=== PATIENT | male | born 1970 | race Caucasian/White ===

== ENCOUNTER → 2016-08-08 | Outpatient (CLI) | payer BC ==
--- NOTE | 2016-08-09 10:22 | ECHOF ---
Referral Reason:I10 HTN MEASUREMENTS -------- HEIGHT: 182.9 cm WEIGHT: 131.5 kg BP: 162/81 RVIDd: 3.4 cm (< 3.3) IVSd: 1.2 cm (0.6 - 1.1) LVIDd: 4.9 cm (3.9 - 5.3) LVPWd: 1.2 cm (0.6 - 1.1) IVSs: 1.8 cm LVIDs: 3.6 cm LVPWs: 2.0 cm LA Diam: 3.5 cm (2.7 - 3.8) LAESV Index (A-L): 21.47 ml/m Ao Diam: 3.4 cm (2.0 - 3.7) AV Cusp: 2.5 cm (1.5 - 2.6) MV EXCURSION: 15.271 mm (> 18.000) MV EF SLOPE: 98 mm/s (70 - 150) EPSS: 1.0 cm MV E Patrick: 1.05 m/s MV DecT: 186 ms MV A Patrick: 0.79 m/s MV E/A Ratio: 1.33 RAP: 5.00 mmHg RVSP: 20.86 mmHg FINDINGS -------- Sinus rhythm. This was a technically good study. The left ventricular size is normal. There is borderline concentric left ventricular hypertrophy. Overall left ventricular systolic function is normal with, an EF between 60 - 65 %. The right ventricle is mildly enlarged. Normal LA size by volume 22+/-6 ml/m2. The right atrium is normal in size. The aortic valve is trileaflet and appears structurally normal. The mitral valve is normal. Mild tricuspid regurgitation present. Right ventricular systolic pressure is normal at < 35 mmHg. The pulmonic valve is normal. There is no pulmonic regurgitation present. The aortic root size is normal. Normal inferior vena cava with normal inspiratory collapse consistent with estimated right atrial pressure of 5 mmHg. The pericardium is normal. CONCLUSIONS -------- 1. Sinus rhythm. 2. The mitral valve is normal. 3. Mild tricuspid regurgitation present. 4. Right ventricular systolic pressure is normal at < 35 mmHg. 5. The pulmonic valve is normal. 6. The aortic root size is normal. 7. Normal inferior vena cava with normal inspiratory collapse consistent with estimated right atrial pressure of 5 mmHg. 8. The pericardium is normal. 9. This was a technically good study. 10. The left ventricular size is normal. 11. There is borderline concentric left ventricular hypertrophy. 12. Overall left ventricular systolic function is normal with, an EF between 60 - 65 %. 13. The right ventricle is mildly enlarged. 14. Normal LA size by volume 22+/-6 ml/m2. 15. The right atrium is normal in size. 16. The aortic valve is trileaflet and appears structurally normal. HAND UMBRELLA TIPPER: Erna Sommer RDCS
== END | disposition home or self-care (01) ==
LOC: RADECHMAIN 14:53
PROVIDERS: ATTEND Family Medicine
DX: I51.7 Cardiomegaly (principal); I07.1 Rheumatic tricuspid insufficiency; I10 Essential (primary) hypertension
CPT/HCPCS: 93306

== ENCOUNTER 2016-12-12 06:21 | Day surgery (SDC) | payer BC ==
[2016-12-09 11:41] VITALS: BMI 37.7
[~2016-12-12 06:21] MED LIST: DEXAMETHASONE SOD PHOSPHATE 10 MG/ML 1 ML VIAL IV ONE; LACTATED RINGERS 1,000 ML IV SCH; ONDANSETRON 4 MG/2 ML VIAL IVP ONE; ceFAZolin 3 GM in SODIUM CHLORIDE 0.9% 100 ML IVPB ONE
[2016-12-12] MEDS ORDERED: SCOPOLAMINE 1.5MG/72HR PATCH TRANSDERM ONE (06:58)
[2016-12-12] MEDS ORDERED: LIDOCAINE 1% 20 ML VIAL (10MG/ML) FOR IV START INTRADERMA ONE (06:58)
[2016-12-12] MEDS ORDERED: HEPARIN SODIUM,PORCINE 5,000 UNIT/ML 1 ML VIAL SQ ONE ×2 (07:28→07:29)
[2016-12-12] MEDS ORDERED: ROCURONIUM BROMIDE 10 MG/ML 10 ML VIAL IV ONE (07:29)
[2016-12-12] MEDS ORDERED: GLYCOPYRROLATE 0.2 MG/ML 2 ML VIAL ONE (07:29)
[2016-12-12] MEDS ORDERED: NEOSTIGMINE 1 MG/ML 10 ML VIAL ONE (07:29)
[2016-12-12] MEDS ORDERED: MIDAZOLAM 2 MG/2 ML VIAL ONE (07:29)
[2016-12-12] MEDS ORDERED: fentaNYL (PF) 50 MCG/ML 2 ML AMP ONE (07:29)
[2016-12-12] MEDS ORDERED: SUCCINYLCHOLINE CHLORIDE VIAL 200 MG/10 ML VIAL IV ONE (07:29)
[2016-12-12] MEDS ORDERED: HYDROmorphone (PF) 1 MG/ML ONE (07:29)
[2016-12-12] MEDS ORDERED: PROPOFOL 10 MG/ML 20 ML VIAL IV ONE (07:29)
[2016-12-12] MEDS ORDERED: LIDOCAINE 1% INJ 10MG/ML (20 ML MDV) ONE (07:29)
[2016-12-12] MEDS ORDERED: hydrALAZINE HCL 20 MG/ML 1 ML VIAL ONE (07:29)
[2016-12-12] MEDS ORDERED: BUPIVACAIN-EPI 0.5%-1:200,000 30 ML VIAL SQ ONE (07:51)
--- NOTE | 2016-12-12 09:02 | P.OP ---
Date of Procedure: 12/12/16 Preoperative Diagnosis: Umbilical hernia Postoperative Diagnosis: Incarcerated umbilical hernia containing preperitoneal fat Procedure(s) Performed: Robot-assisted laparoscopic repair of umbilical hernia with mesh Implants: 11.4 cm ventral or next mesh with adequate positioning system Anesthesia: ASHLEYA Surgeon: Dora Gonzalez Pathology: other Condition: stable Disposition: PACU Indications for Procedure: Operative Findings: Approximately 2 cm fascial defect for the umbilical hernia. Incarcerated containing preperitoneal fat Description of Procedure: Informed consent was obtained and the patient prior to the operation. Patient identified in the preoperative holding area taken the operating room placed in supine position given general anesthesia with endotracheal intubation. The patient's right arm was tucked After appropriately positioning the patient the patient was prepped and draped in the usual sterile surgical fashion. Appropriate timeout was called. Patient received 3 g of Ancef for skin prophylaxis and 5000 units of subcu heparin for thromboprophylaxis preoperatively. SCDs were also placed. Left upper quadrant with a identified and infiltrated with lidocaine small incision was made with the help of 11 blade and then a was used to enter the abdominal cavity and the direct vision. The abdomen was then insufflated to 15 mmHg. Once that was done, 12 mm port was placed in the left upper quadrant and 2 8 mm ports were placed in the left upper quadrant and left lower quadrant respectively. At this time for laparoscopic scope was removed and the robot was docked with the 12 mm camera and the progress in the left hand and scissors in the right hand were taken.. The hernia was identified and measured to be approximately 2.0 cm fascial defect . A preperitoneal plane was created around the fascial defect extending below so that there was good area to place the mesh . After that the fascial defect was closed with a running 0V lock suture. Once that was done and the needle was removed a 11.4 cm circular ventral like ST with echo positioning system was introduced . The Maxx Helm was then introduced and the mesh was elevated up to the abdominal wall into its position over the fascial defect that had previously been closed with good overlap. Running 2 0V lock suture was used to stitch the mesh to the abdominal wall. This was done and introduced pressure of 8 mmHg. Once that was done both needles were removed. The mesh was flat well in placed with good overlap. There is no bleeding. At this time the procedure was terminated. The robot was undocked and its instruments removed. Using the laparoscope the 12 mm port site was closed with a Maxx Helm and 0 Vicryl. The ports were removed abdomen was desufflated and the skin was closed with the help of 4-0 Monocryl. Dermabond was applied. The patient tolerated the procedure well there were no complications patient was taken to recovery room in stable condition after extubation.
[2016-12-12 09:13] VITALS: TEMP 98.4
[2016-12-12 09:17] VITALS: RESP 16
[2016-12-12] MEDS: HYDROmorphone 1 MG/ML 1 ML SYRINGE IVP PRN ×2 (09:33→09:41)
[2016-12-12] MEDS ORDERED: HYDROcodone/APAP 5-325MG 1 EACH TAB PO ONE (10:06)
[2016-12-12 11:01] VITALS: BP 128/74; PULSE 77
== END 2016-12-12 11:23 | disposition home or self-care (01) ==
LOC: OR 06:21
PROVIDERS: ATTEND Surgery
DX: K42.0 Umbilical hernia with obstruction, without gangrene (principal); I10 Essential (primary) hypertension; Z87.891 Personal history of nicotine dependence; E66.9 Obesity, unspecified; Z68.37 Body mass index [BMI] 37.0-37.9, adult
CPT/HCPCS: 49653; S2900; 88302

== ENCOUNTER 2022-03-22 08:54 | Observation (INO) | payer BC ==
--- NOTE | 2022-03-22 09:50 | ED ---
General Adult HPI - General Chief complaint: Abdominal Pain Stated complaint: N/V/D Time Seen by Provider: 03/22/22 09:14 Source: patient Mode of arrival: ambulatory Limitations: no limitations - History of Present Illness Initial comments: Dictation was produced using new test [employer] dictation software. please excuse any grammatical, word or spelling errors. Chief Complaint: 51-year-old male presents to the emergency department with nausea vomiting abdominal pain. Believes that he was poisoned on Friday History of Present Illness: Patient is a 51-year-old male presents to emergency department for nausea vomiting and abdominal pain. On Friday he ate some frozen meat balls from the local grocery store. Patient states that since that he's been having episodes of nausea, vomiting and abdominal pain. States that the abdominal pain is crampy. Denies any active symptoms at the bedside. Patient reports that his symptoms have improved. His emesis when he had some vomiting episodes were bilious. Patient has a chronic. Umbilical hernia that appears to be at baseline. Denies any diarrhea. He has had normal bowel movements. The ROS documented in this emergency department record has been reviewed and confirmed by me. Those systems with pertinent positive or negative responses have been documented in the HPI. All other systems are other negative and/or noncontributory. PHYSICAL EXAM: General Impression: Alert and oriented x3, not in acute distress HEENT: Normocephalic atraumatic, extra-ocular movements intact, pupils equal and reactive to light bilaterally, mucous membranes moist. Cardiovascular: Heart regular rate and rhythm Chest: Able to complete full sentences, no retractions, no tachypnea Abdomen: abdomen soft, non-tender, non-distended, no organomegaly Musculoskeletal: Pulses present and equal in all extremities, no peripheral edema Motor: no focal deficits noted Neurological: CN II-XII grossly intact, no focal motor or sensory deficits noted Skin: Intact with no visualized rashes Psych: Normal affect and mood ED course: 51-year-old well-appearing male with no significant comorbidities presents with chief complaint of food poisoning. Patient is well-appearing at the bedside. He does not have any active symptoms currently. Vital signs upon arrival are within acceptable limits. Chart review was performed Laboratory evaluation obtained. CBC unremarkable. Metabolic panel shows mild hyponatremia 126. Rest of labs unremarkable. X-ray shows findings suggestive bowel obstruction. Computed tomography scan abdomen pelvis shows high-grade small bowel obstruction secondary to anterior abdominal wall hernia sac. Case is discussed in detail with Dr. Moreno who arrived at the bedside and was able to manually reduce the hernia. Dr. Moreno requested patient be admitted to observation for further monitoring. Critical Care: no Critical Care time: n/a - Related Data Previous Rx's Medication Instructions Recorded HYDROcodone/APAP 5-325MG [[place] 1 tab PO Q6HR PRN #18 tab 12/12/16 5-325] Ibuprofen [Motrin] 800 mg PO Q8H PRN #30 tab 12/12/16 Allergies Allergy/AdvReac Type Severity Reaction Status Date / Time No Known Allergies Allergy Verified 03/22/22 09:09 Review of Systems ROS Statement: Those systems with pertinent positive or pertinent negative responses have been documented in the HPI. ROS Other: All systems not noted in ROS Statement are negative. Past Medical History Past Medical History: Hypertension, Pneumonia Additional Past Medical History / Comment(s): BP is normal now due to weight loss History of Any Multi-Drug Resistant Organisms: None Reported Past Surgical History: No Surgical Hx Reported, Hernia Repair Additional Past Surgical History / Comment(s): varicose veins Past Anesthesia/Blood Transfusion Reactions: Unable to Obtain Additional Past Anesthesia/Blood Transfusion Reaction / Comment(s): never had anesthesia Past Psychological History: No Psychological Hx Reported Smoking Status: Never smoker Past Alcohol Use History: Occasional Past Drug Use History: None Reported - Past Family History Mother Family Medical History: No Reported History General Exam Limitations: no limitations Course Vital Signs 03/22/22 09:10 Temperature 97 F L Pulse Rate 76 Respiratory 16 Rate Blood Pressure 142/99 O2 Sat by Pulse 95 Oximetry Medical Decision Making - Lab Data Result diagrams: 03/22/22 09:37 03/22/22 09:37 Lab Results 03/22/22 03/22/22 Range/Units 09:37 09:37 WBC 10.5 (3.8-10.6) k/uL RBC 5.44 (4.30-5.90) m/uL Hgb 17.1 (13.0-17.5) gm/dL Hct 46.4 (39.0-53.0) % MCV 85.2 (80.0-100.0) fL MCH 31.4 (25.0-35.0) pg MCHC 36.9 (31.0-37.0) g/dL RDW 12.3 (11.5-15.5) % Plt Count 269 (150-450) k/uL MPV 8.6 Neutrophils % 83 % Lymphocytes % 8 % Monocytes % 7 % Eosinophils % 1 % Basophils % 0 % Neutrophils # 8.7 H (1.3-7.7) k/uL Lymphocytes # 0.9 L (1.0-4.8) k/uL Monocytes # 0.7 (0-1.0) k/uL Eosinophils # 0.1 (0-0.7) k/uL Basophils # 0.1 (0-0.2) k/uL Sodium 126 L (137-145) mmol/L Potassium 4.3 (3.5-5.1) mmol/L Chloride 87 L (98-107) mmol/L Carbon Dioxide 26 (22-30) mmol/L Anion Gap 13 mmol/L BUN 19 (9-20) mg/dL Creatinine 0.85 (0.66-1.25) mg/dL Est GFR (CKD-EPI)AfAm >90 (>60 ml/min/1.73 sqM) Est GFR (CKD-EPI)NonAf >90 (>60 ml/min/1.73 sqM) Glucose 122 H (74-99) mg/dL Calcium 9.6 (8.4-10.2) mg/dL Total Bilirubin 2.4 H (0.2-1.3) mg/dL AST 23 (17-59) U/L ALT 21 (4-49) U/L Alkaline Phosphatase 48 (38-126) U/L Total Protein 8.2 (6.3-8.2) g/dL Albumin 5.1 H (3.5-5.0) g/dL Lipase 101 (23-300) U/L Disposition Clinical Impression: SBO (small bowel obstruction) Disposition: ADMITTED IP TO THIS HOSP Condition: Fair Referrals: Shin Peterson MD [Primary Care Provider] - 1-2 days Decision Time: 12:30
[2022-03-22 10:05] LABS: Basophils # (A) 0.1 k/uL (0-0.2); Basophils % (A) 0 %; Eosinophils # (A) 0.1 k/uL (0-0.7); Eosinophils % (A) 1 %; HCT 46.4 % (39.0-53.0); HGB 17.1 gm/dL (13.0-17.5); Lymphocytes # (A) 0.9 k/uL (1.0-4.8); Lymphocytes % (A) 8 %; MCH 31.4 pg (25.0-35.0); MCHC 36.9 g/dL (31.0-37.0); MCV 85.2 fL (80.0-100.0); Mean Platelet Volume 8.6; Monocytes # (A) 0.7 k/uL (0-1.0); Monocytes % (A) 7 %; Neutrophils # (A) 8.7 k/uL (1.3-7.7); Neutrophils % (A) 83 %; Platelet Count 269 k/uL (150-450); RBC 5.44 m/uL (4.30-5.90); RDW 12.3 % (11.5-15.5); WBC 10.5 k/uL (3.8-10.6)
[2022-03-22 10:25] LABS: ALT 21 U/L (4-49); AST 23 U/L (17-59); African American GFR (CKD) >90 (>60 ml/min/1.73 sqM); Albumin 5.1 g/dL (3.5-5.0); Alkaline Phosphatase 48 U/L (38-126); Anion Gap 13 mmol/L; Blood Urea Nitrogen 19 mg/dL (9-20); Calcium 9.6 mg/dL (8.4-10.2); Carbon Dioxide 26 mmol/L (22-30); Chloride 87 mmol/L (98-107); Glucose 122 mg/dL (74-99); Lipase 101 U/L (23-300); Non-African American GFR(CKD) >90 (>60 ml/min/1.73 sqM); Potassium 4.3 mmol/L (3.5-5.1); Sodium 126 mmol/L (137-145); Total Bilirubin 2.4 mg/dL (0.2-1.3); Total Protein 8.2 g/dL (6.3-8.2)
--- NOTE | 2022-03-22 10:30 | XR ---
EXAMINATION TYPE: XR abdomen 1V DATE OF EXAM: 03/22/2022 Comparison: None Clinical History: 51-year-old male abdominal pain Findings: Dilated 4.4 cm small bowel loop in the midabdomen. Additional air-fluid levels are present in the cece tral abdomen. There is paucity of colonic air. No evidence for free intraperitoneal air. Lung bases a re clear. Impression: Mid abdominal air-fluid levels. Small bowel loop dilated up to 4.4 cm with paucity of colonic air. Un able to exclude small bowel obstruction.
--- NOTE | 2022-03-22 12:09 | CT ---
EXAMINATION TYPE: CT abdomen pelvis w con DATE OF EXAM: 03/22/2022 COMPARISON: HISTORY: abdominal pain, vomiting CT DLP: 2257.5 mGycm Automated exposure control for dose reduction was used. CONTRAST: CT scan of the abdomen pelvis is performed with IV Contrast, patient injected with 100 mL of Isovue 3 00. FINDINGS- LUNG BASES- No significant abnormality is appreciated. LIVER/GB- enhancement of the gallbladder wall with cholelithiasis suspected. There appears to be in trahepatic biliary ductal dilation and extrahepatic biliary ductal dilation measuring 9 mm.. PANCREAS- No gross abnormality is seen. SPLEEN- No gross abnormality is seen. ADRENALS- No gross abnormality is seen. KIDNEYS/BLADDER- no hydronephrosis nephrolithiasis or renal mass. BOWEL- there are numerous dilated small bowel loops with anterior abdominal hernia seen containing l oops of small bowel with change in caliber along the right lateral margin hernia sac compatible with a high-grade small bowel obstruction secondary to anterior abdominal wall hernia. Report discussed wi th the ER physician at 12:00 PM, 03/22/2022 Diverticulosis of the sigmoid colon. LYMPH NODES- No greater than 1cm abdominal or pelvic lymph nodes are appreciated. OSSEOUS STRUCTURES- hypertrophic and degenerative change of the spine OTHER- there is a small amount of fluid in pelvis and along the liver. No obvious sizable free intra peritoneal air. Small amount of fluid adjacent to the spleen also noted. Aorta caliber. The SMV and S MA relationship is maintained. Mesenteric vasculature enhances I immediately. IMPRESSION- 1. There is a high-grade small bowel obstruction most likely secondary to anterior abdominal wall her aysha sac in the periumbilical region. Small amount of ascites surrounding the spleen, liver and within the pelvis also noted. 2. Enhancement of the gallbladder wall with extra and intrahepatic biliary ductal dilation. No obviou s calcification within the bile duct. The physis is suspected. Recommend ultrasound the right upper quadrant with attention to the gallblad adebayo to exclude cholecystitis. 3. Diverticulosis with no CT evidence of diverticulitis.
[2022-03-22] MEDS ORDERED: NALOXONE 0.4 MG/ML 1 ML VIAL IV PRN (12:28)
[2022-03-22] MEDS ORDERED: ACETAMINOPHEN TAB 325 MG TAB PO PRN (12:33)
[2022-03-22] MEDS ORDERED: HYDROmorphone 0.5 MG/0.5 ML SYRINGE IVP PRN (12:33)
--- NOTE | 2022-03-22 12:37 | P.GSHP ---
History of Present Illness H&P Date: 03/22/22 Chief Complaint: Small bowel obstruction 51-year-old male comes in the ER with complaints of abdominal pain and vomiting. Patient with history of previous repair umbilical hernia laparoscopically 2017 with underlay mesh. Patient says during Covid he had a recurrence of his hernia and felt a bulge there. Since Friday the hernia has been larger and it is not reducible. He started having nausea and vomiting over the last few days. Came for evaluation. X-rays and CAT scan show small bowel obstruction with loop of bowel incarcerated in the hernia. Initial attempts by the ER to reduce this hernia unsuccessful. No fevers. Emesis is bilious. White blood cell count 10.5. - Review of Systems Comment: The patient denies any acute changes in vision or hearing, no dysphagia or odynophagia, no chest pain or shortness of breath, no dysuria or hematuria, no headache, no runny nose, no rectal bleeding or melena, no unexplained weight loss Past Medical History Past Medical History: Hypertension, Pneumonia Additional Past Medical History / Comment(s): BP is normal now due to weight loss History of Any Multi-Drug Resistant Organisms: None Reported Past Surgical History: No Surgical Hx Reported, Hernia Repair Additional Past Surgical History / Comment(s): varicose veins Past Anesthesia/Blood Transfusion Reactions: Unable to Obtain Additional Past Anesthesia/Blood Transfusion Reaction / Comment(s): never had anesthesia Past Psychological History: No Psychological Hx Reported Smoking Status: Never smoker Past Alcohol Use History: Occasional Past Drug Use History: None Reported - Past Family History Mother Family Medical History: No Reported History Medications and Allergies Home Medications Medication Instructions Recorded Confirmed Type HYDROcodone/APAP 5-325MG [[place] 1 tab PO Q6HR PRN #18 tab 12/12/16 Rx 5-325] Ibuprofen [Motrin] 800 mg PO Q8H PRN #30 tab 12/12/16 Rx Allergies Allergy/AdvReac Type Severity Reaction Status Date / Time No Known Allergies Allergy Verified 03/22/22 09:09 Surgical - Exam Vital Signs Temp Pulse Resp BP Pulse Ox 97 F L 76 16 142/99 95 03/22/22 09:10 03/22/22 09:10 03/22/22 09:10 03/22/22 09:10 03/22/22 09:10 Physical exam: General: Well-developed, well-nourished HEENT: Normocephalic, sclerae nonicteric Abdomen: Mild tenderness at umbilical hernia site, hernia able to be reduced with mild gentle pressure, patient with 2-3 cm fascial defect at base of umbilicus with possible additional fascial defects superior to that Extremities: No edema Neuro: Alert and oriented Results - Labs 03/22/22 09:37 03/22/22 09:37 Abnormal Lab Results - Last 24 Hours (Table) 03/22/22 03/22/22 Range/Units 09:37 09:37 Neutrophils # 8.7 H (1.3-7.7) k/uL Lymphocytes # 0.9 L (1.0-4.8) k/uL Sodium 126 L (137-145) mmol/L Chloride 87 L (98-107) mmol/L Glucose 122 H (74-99) mg/dL Total Bilirubin 2.4 H (0.2-1.3) mg/dL Albumin 5.1 H (3.5-5.0) g/dL Diabetes panel 03/22/22 Range/Units 09:37 Sodium 126 L (137-145) mmol/L Potassium 4.3 (3.5-5.1) mmol/L Chloride 87 L (98-107) mmol/L Carbon Dioxide 26 (22-30) mmol/L BUN 19 (9-20) mg/dL Creatinine 0.85 (0.66-1.25) mg/dL Glucose 122 H (74-99) mg/dL Calcium 9.6 (8.4-10.2) mg/dL AST 23 (17-59) U/L ALT 21 (4-49) U/L Alkaline Phosphatase 48 (38-126) U/L Total Protein 8.2 (6.3-8.2) g/dL Albumin 5.1 H (3.5-5.0) g/dL Calcium panel 03/22/22 Range/Units 09:37 Calcium 9.6 (8.4-10.2) mg/dL Albumin 5.1 H (3.5-5.0) g/dL Pituitary panel 03/22/22 Range/Units 09:37 Sodium 126 L (137-145) mmol/L Potassium 4.3 (3.5-5.1) mmol/L Chloride 87 L (98-107) mmol/L Carbon Dioxide 26 (22-30) mmol/L BUN 19 (9-20) mg/dL Creatinine 0.85 (0.66-1.25) mg/dL Glucose 122 H (74-99) mg/dL Calcium 9.6 (8.4-10.2) mg/dL Adrenal panel 03/22/22 Range/Units 09:37 Sodium 126 L (137-145) mmol/L Potassium 4.3 (3.5-5.1) mmol/L Chloride 87 L (98-107) mmol/L Carbon Dioxide 26 (22-30) mmol/L BUN 19 (9-20) mg/dL Creatinine 0.85 (0.66-1.25) mg/dL Glucose 122 H (74-99) mg/dL Calcium 9.6 (8.4-10.2) mg/dL Total Bilirubin 2.4 H (0.2-1.3) mg/dL AST 23 (17-59) U/L ALT 21 (4-49) U/L Alkaline Phosphatase 48 (38-126) U/L Total Protein 8.2 (6.3-8.2) g/dL Albumin 5.1 H (3.5-5.0) g/dL Assessment and Plan (1) Incarcerated incisional hernia Narrative/Plan: 51-year-old male with incarcerated incisional hernia at previous hernia site. Able to be reduced at bedside. Keep nothing by mouth for now. Admit for observation. If doing well tomorrow we'll discharge with plans for outpatient repair electively. Current Visit: Yes Status: Acute Code(s): K43.0 - INCISIONAL HERNIA WITH O BSTRUCTION, WITHOUT GANGRENE SNOMED Code(s): 808253569
--- NOTE | 2022-03-22 13:53 | P.CONS ---
History of Present Illness - Reason for Consult Consult date: 03/22/22 Medical management - Chief Complaint Abdominal pain - History of Present Illness Patient is a 51-year-old male with no significant past medical history presenting for distended abdominal hernia and vomiting. He has a previous surgical history of laparoscopic umbilical hernia repair in 2017 with underlay mesh. Recently he has noticed that the hernia has been larger and not reducible. Over the last few days, he has been experiencing nausea and vomiting. He has not had any bowel movement for the last 3 days. He denies any chest pain, shortness of breath, palpitations, fevers, chills, diarrhea, or urinary complaints. He occasionally drinks alcohol, is a former smoker, denies any illicit drug use. In the ED his vital signs were within normal limits. Laboratory workup showed sodium of 126, chloride of 87, elevated bilirubin. Abdominal CT demonstrated high-grade small bowel obstruction secondary to anterior abdominal wall hernia sac in the periumbilical region. Also noted to have enhancement of gallbladder wall with extra and intrahepatic biliary ductal dilatation. Diverticulosis, no evidence of diverticulitis. Hernia was reduced by surgery. Patient then had a bowel movement as well. [facility] physicians has been consulted for medical management. Patient seen and examined at bedside. Pertinent positives and negatives as discussed in HPI, a complete review of systems was performed and all other systems are negative. Vital signs reviewed General: nontoxic, no distress, appears at stated age Derm: warm, dry Head: atraumatic, normocephalic, symmetric Eyes: EOMI, no lid lag, anicteric sclera, pupils equal round reactive to light ENT: Nose and ears atraumatic Neck: No thyromegaly, supple Mouth: no lip lesion, mucus membranes moist Cardiovascular: S1S2 reg, no murmur, no edema Lungs: clear to auscultation bilateral, no rhonchi, no rales, no wheeze, no accessory muscle use Abdominal: soft, nontender to palpation, no guarding, no appreciable organomegaly, reducible periumbilical hernia Ext: no gross muscle atrophy, muscle strength muscle strength 5 out of 5 in all 4 extremities, no contractures Neuro: CN II-XII grossly intact Psych: Alert, oriented, appropriate affect Assessment/Plan: Incarcerated incisional hernia - reduced by surgery Small bowel obstruction - resolving -Currently nothing by mouth -Management per surgery -Pain control and DVT prophylaxis per surgery Hyponatremia, likely hypovolemic - Continue IV fluids Thank you for allowing us to participate in the care of this pleasant patient. Do not hesitate to contact us with questions. Someone can be reached from the [facility] hospitalist group all hours of the day at [phone] or via [employer]. Past Medical History Past Medical History: Hypertension, Pneumonia Additional Past Medical History / Comment(s): BP is normal now due to weight loss History of Any Multi-Drug Resistant Organisms: None Reported Past Surgical History: No Surgical Hx Reported, Hernia Repair Additional Past Surgical History / Comment(s): varicose veins Past Anesthesia/Blood Transfusion Reactions: Unable to Obtain Additional Past Anesthesia/Blood Transfusion Reaction / Comm: never had anesthesia Past Psychological History: No Psychological Hx Reported Smoking Status: Never smoker Past Alcohol Use History: Occasional Past Drug Use History: None Reported - Past Family History Mother Family Medical History: No Reported History Medications and Allergies Home Medications Medication Instructions Recorded Confirmed Type No Known Home Medications 03/22/22 03/22/22 History Allergies Allergy/AdvReac Type Severity Reaction Status Date / Time No Known Allergies Allergy Verified 03/22/22 12:46 Physical Exam Vitals: Vital Signs Temp Pulse Resp BP Pulse Ox 03/22/22 09:10 97 F L 76 16 142/99 95 Intake and Output 03/21/22 03/22/22 03/22/22 22:59 06:59 14:59 Other: Weight 122.47 kg Results CBC & Chem 7: 03/22/22 09:37 03/22/22 09:37 Labs: Abnormal Lab Results - Last 24 Hours (Table) 03/22/22 03/22/22 Range/Units 09:37 09:37 Neutrophils # 8.7 H (1.3-7.7) k/uL Lymphocytes # 0.9 L (1.0-4.8) k/uL Sodium 126 L (137-145) mmol/L Chloride 87 L (98-107) mmol/L Glucose 122 H (74-99) mg/dL Total Bilirubin 2.4 H (0.2-1.3) mg/dL Albumin 5.1 H (3.5-5.0) g/dL
[2022-03-22] MEDS: SODIUM CHLORIDE 0.9% 1,000 ML IV SCH (13:55)
[2022-03-22] MEDS: HEPARIN SODIUM,PORCINE/PF 5,000 UNIT/0.5 ML SYRINGE SQ SCH ×2 (15:43→23:45)
[2022-03-22] MEDS: D5-0.45% NACL WITH KCL 20MEQ/L 1,000 ML IV SCH ×2 (15:43→21:36)
[2022-03-22] MEDS: KETOROLAC 15 MG/ML 1 ML VIAL IVP SCH ×2 (17:51→23:45)
[2022-03-23] MEDS: SODIUM CHLORIDE 0.9% 1,000 ML IV SCH (01:24)
[2022-03-23 02:31] VITALS: TEMP 98.3
[2022-03-23] MEDS: D5-0.45% NACL WITH KCL 20MEQ/L 1,000 ML IV SCH ×2 (04:18→09:35)
[2022-03-23] MEDS: KETOROLAC 15 MG/ML 1 ML VIAL IVP SCH ×2 (05:45→12:36)
[2022-03-23 08:15] VITALS: BP 127/85; PULSE 59; RESP 16
[2022-03-23 08:55] LABS: Basophils # (A) 0.06 X 10*3/uL (0.00-0.10); Basophils % (A) 0.9 %; Eosinophils # (A) 0.13 X 10*3/uL (0.04-0.35); Eosinophils % (A) 1.9 %; HCT 44.8 % (39.6-50.0); HGB 15.5 g/dL (13.0-17.0); Immature Grans, Automated 0.9 %; Lymphocytes # (A) 1.09 X 10*3/uL (0.90-5.00); MCH 30.6 pg (27.0-32.0); MCHC 34.6 g/dL (32.0-37.0); MCV 88.4 fL (80.0-97.0); Monocytes # (A) 0.62 X 10*3/uL (0.20-1.00); Monocytes % (A) 9.1 %; NRBC Per 100 WBC 0 /100 WBCS (0.0-0.0); Neutrophils # (A) 4.86 X 10*3/uL (1.80-7.70); Neutrophils % (A) 71.2 %; Platelet Count 238 X 10*3/uL (140-440); RBC 5.07 X 10*6/uL (4.40-5.60); RDW 12.6 % (11.5-14.5); WBC 6.82 X 10*3/uL (4.50-10.00)
[2022-03-23] MEDS ORDERED: PANTOPRAZOLE 40 MG/10 ML VIAL IV SCH (09:00)
[2022-03-23] MEDS: HEPARIN SODIUM,PORCINE/PF 5,000 UNIT/0.5 ML SYRINGE SQ SCH (09:05)
[2022-03-23 09:42] LABS: African American GFR (CKD) 112.6 (60.0-200.0); Anion Gap 11.4 mmol/L (10.00-18.00); Blood Urea Nitrogen 13.5 mg/dL (9.0-27.0); Calcium 8.9 mg/dL (8.7-10.3); Carbon Dioxide 24.6 mmol/L (20.0-27.5); Non-African American GFR(CKD) 97.2 (60.0-200.0); Potassium 3.7 mmol/L (3.5-5.5)
--- NOTE | 2022-03-23 10:42 | P.DS ---
Providers Date of admission: 03/22/22 12:28 Expected date of discharge: 03/23/22 Attending physician: Casey Moreno Consults: 03/22/22 12:33 Consult Physician Routine Consulting Provider: Margo Sanders Consult Reason/Comments: Medical management Do you want consulting provider notified?: Yes Primary care physician: Shin Peterson - Discharge Diagnosis(es) (1) Incarcerated incisional hernia 51-year-old male admitted through the ER yesterday for observation after he presented with an incarcerated incisional hernia. Patient was having some discomfort yesterday but that quickly resolved. He started having bowel movements yesterday. No further nausea or vomiting. He is hungry. No abdominal pain now. Will resume diet. If tolerates we'll discharge. Plan outpatient repair. Current Visit: Yes Status: Acute Patient Condition at Discharge: Fair Plan - Discharge Summary Discharge Rx Participant: No New Discharge Prescriptions: No Action No Known Home Medications Discharge Medication List No Known Home Medications 03/22/22 [History] Follow up Appointment(s)/Referral(s): Shin Peterson MD [Primary Care Provider] - 1-2 days Casey Moreno MD [Medical Doctor] - 1 Week
--- NOTE | 2022-03-23 11:48 | P.PN ---
Subjective Progress Note Date: 03/23/22 Principal diagnosis: vomitting Hospital Course: Patient is a 51-year-old male with no significant past medical history presenting for distended abdominal hernia and vomiting. He has a previous surgical history of laparoscopic umbilical hernia repair in 2017 with underlay mesh. Recently he has noticed that the hernia has been larger and not reducible. Over the last few days, he has been experiencing nausea and vomiting. Abdominal CT demonstrated high-grade small bowel obstruction secondary to anterior abdominal wall hernia sac in the periumbilical region. Also noted to have enhancement of gallbladder wall with extra and intrahepatic biliary ductal dilatation. Diverticulosis, no evidence of diverticulitis. Hernia was manually reduced by surgery. Patient then had a bowel movement as well. [facility] physicians has been consulted for medical management. Subjective: Patient seen and examined at bedside. No acute events overnight. He denies any abdominal pain, nausea, vomiting, diarrhea, constipation, urinary complaints. He denies any chest pain or shortness of breath. Patient is eager to go home. Pertinent positives and negatives as discussed above, a complete review of systems was performed and all other systems are negative. Vitals Signs Reviewed. General: nontoxic, no distress, appears at stated age Derm: warm, dry Head: atraumatic, normocephalic, symmetric Eyes: EOMI, no lid lag, anicteric sclera, pupils equal round reactive to light ENT: Nose and ears atraumatic Neck: No thyromegaly, supple Mouth: no lip lesion, mucus membranes moist Cardiovascular: S1S2 reg, no murmur, no edema Lungs: clear to auscultation bilateral, no rhonchi, no rales, no wheeze, no accessory muscle use Abdominal: soft, nontender to palpation, no guarding, no appreciable organomegaly, reducible periumbilical hernia Ext: no gross muscle atrophy, muscle strength muscle strength 5 out of 5 in all 4 extremities, no contractures Neuro: CN II-XII grossly intact Psych: Alert, oriented, appropriate affect Assessment and Plan: Incarcerated incisional hernia - reduced by surgery Small bowel obstruction - resolving -Currently nothing by mouth -Management per surgery -Pain control and DVT prophylaxis per surgery Hyponatremia, likely hypovolemic -Improved with IV fluids Medically optimized for discharge home. Thank you for allowing us to participate in the care of this pleasant patient. Do not hesitate to contact us with questions. Someone can be reached from the [facility] hospitalist group all hours of the day at [phone] or via perfect serve. Objective - Vital Signs Vital signs: Vital Signs Temp 98.3 F 03/23/22 07:00 Pulse 59 L 03/23/22 07:00 Resp 16 03/23/22 07:00 BP 127/85 03/23/22 07:00 Pulse Ox 95 03/23/22 07:00 FiO2 Intake & Output 03/22/22 03/23/22 03/23/22 18:59 06:59 18:59 Weight 122.47 kg Other: # Voids 1 2 # Bowel Movements 1 - Labs CBC & Chem 7: 03/23/22 05:59 03/23/22 05:59 Labs: Abnormal Lab Results - Last 24 Hours (Table) 03/23/22 03/23/22 Range/Units 05:59 05:59 Immature Gran # 0.06 H (0.00-0.04) X 10*3/uL Sodium 128 L (135-145) mmol/L Chloride 92 L (96-109) mmol/L
== END 2022-03-23 14:23 | disposition home or self-care (01) ==
LOC: EC 08:54 → 6NMEDSUR 12:28
PROVIDERS: ADMIT Surgery; ATTEND Surgery
DX: K43.0 Incisional hernia with obstruction, without gangrene (principal); K57.90 Diverticulosis of intestine, part unspecified, without perforation or abscess without bleeding; R93.2 Abnormal findings on diagnostic imaging of liver and biliary tract; E87.1 Hypo-osmolality and hyponatremia; I10 Essential (primary) hypertension; Z87.891 Personal history of nicotine dependence
CPT/HCPCS: 99285; 36415; 80053; 80048; 83690; 85025 ×2; 74018; 74177; G0378 ×2; Q9967

== ENCOUNTER 2022-05-20 10:59 | Observation (INO) | payer BC ==
[~2022-05-20 10:59] MED LIST changes: +ACETAMINOPHEN TAB 500 MG TAB PO PRN; -DEXAMETHASONE SOD PHOSPHATE 10 MG/ML 1 ML VIAL IV ONE; +HEPARIN SODIUM,PORCINE/PF 5,000 UNIT/0.5 ML SYRINGE SQ PRN; -LACTATED RINGERS 1,000 ML IV SCH; -ONDANSETRON 4 MG/2 ML VIAL IVP ONE; -ceFAZolin 3 GM in SODIUM CHLORIDE 0.9% 100 ML IVPB ONE; +ceFAZolin 3 GM in SODIUM CHLORIDE 0.9% 100 ML IVPB PRN
[2022-05-20] MEDS ORDERED: ONDANSETRON 4 MG/2 ML VIAL IVP ONE (11:11)
[2022-05-20] MEDS ORDERED: DEXAMETHASONE SOD PHOSPHATE 4 MG/ML 1 ML VIAL IV ONE (11:11)
[2022-05-20] MEDS ORDERED: HYDROmorphone 0.5 MG/0.5 ML SYRINGE IVP PRN ×2 (11:11→14:31)
[2022-05-20] MEDS ORDERED: LIDOCAINE 1% (10MG/ML) FOR IV START INTRADERMA PRN (11:11)
[2022-05-20] MEDS: LACTATED RINGERS 1,000 ML IV SCH (11:40)
[2022-05-20 11:47] LABS: Glucose,Whole Blood 89 mg/dL (70-110)
[2022-05-20 11:52] LABS: Basophils % (A) 1 %; Eosinophils # (A) 0.2 k/uL (0-0.7); Eosinophils % (A) 3 %; HCT 45.6 % (39.0-53.0); HGB 15.7 gm/dL (13.0-17.5); Lymphocytes # (A) 1.1 k/uL (1.0-4.8); Lymphocytes % (A) 19 %; MCH 30.5 pg (25.0-35.0); MCHC 34.5 g/dL (31.0-37.0); MCV 88.4 fL (80.0-100.0); Mean Platelet Volume 8.2; Monocytes # (A) 0.3 k/uL (0-1.0); Monocytes % (A) 5 %; Neutrophils # (A) 4.3 k/uL (1.3-7.7); Neutrophils % (A) 71 %; Platelet Count 199 k/uL (150-450); RBC 5.16 m/uL (4.30-5.90); RDW 13.5 % (11.5-15.5); WBC 6.1 k/uL (3.8-10.6)
[2022-05-20 12:08] LABS: Potassium 4.1 mmol/L (3.5-5.1)
--- NOTE | 2022-05-20 12:35 | P.GSHP ---
History of Present Illness H&P Date: 05/20/22 Chief Complaint: Recurrent umbilical hernia 51-year-old male here for elective repair recurrent umbilical hernia. This was fixed apparently in 2017 laparoscopically using a 11 cm mesh. Patient was hospitalized late last year with an incarcerated hernia causing a bowel obst ruction. Hernia was able to be reduced avoiding the need for urgent surgery. Patient has mild pain at times. Hernia has gradually gotten larger. Past Medical History Past Medical History: Hypertension, Pneumonia Additional Past Medical History / Comment(s): BP is normal now due to weight loss History of Any Multi-Drug Resistant Organisms: None Reported Past Surgical History: No Surgical Hx Reported, Hernia Repair Additional Past Surgical History / Comment(s): varicose veins umbilical hernia Past Anesthesia/Blood Transfusion Reactions: No Reported Reaction Additional Past Anesthesia/Blood Transfusion Reaction / Comment(s): never had anesthesia Smoking Status: Former smoker - Past Family History Mother Family Medical History: No Reported History Medications and Allergies Home Medications Medication Instructions Recorded Confirmed Type No Known Home Medications 03/22/22 05/14/22 History Allergies Allergy/AdvReac Type Severity Reaction Status Date / Time No Known Allergies Allergy Verified 05/20/22 11:56 Surgical - Exam Vital Signs Temp Pulse Resp BP Pulse Ox 98.1 F 73 16 168/80 97 05/20/22 11:18 05/20/22 11:18 05/20/22 11:18 05/20/22 11:18 05/20/22 11:18 Physical exam: General: Well-developed, well-nourished HEENT: Normocephalic, sclerae nonicteric Abdomen: Nontender, nondistended, reducible umbilical hernia Extremities: No edema Neuro: Alert and oriented Results - Labs 05/20/22 11:41 05/20/22 11:41 Diabetes panel 05/20/22 Range/Units 11:41 Sodium 138 (137-145) mmol/L Potassium 4.1 (3.5-5.1) mmol/L Chloride 103 (98-107) mmol/L Carbon Dioxide 26 (22-30) mmol/L Pituitary panel 05/20/22 Range/Units 11:41 Sodium 138 (137-145) mmol/L Potassium 4.1 (3.5-5.1) mmol/L Chloride 103 (98-107) mmol/L Carbon Dioxide 26 (22-30) mmol/L Adrenal panel 05/20/22 Range/Units 11:41 Sodium 138 (137-145) mmol/L Potassium 4.1 (3.5-5.1) mmol/L Chloride 103 (98-107) mmol/L Carbon Dioxide 26 (22-30) mmol/L Assessment and Plan (1) Recurrent umbilical hernia Narrative/Plan: 51-year-old male with recurrent umbilical hernia. We'll proceed with open repair with mesh at this time. Risks of bleeding, infection, recurrence, bladder and bowel injury, numbness, nerve injury were discussed with the patient. The patient understands and wishes to proceed. Current Visit: Yes Status: Acute Code(s): K42.9 - UMBILICAL HERNIA WITHOUT OBSTRUCTION OR GANGRENE SNOMED Code(s): 708003131
[2022-05-20] MEDS ORDERED: MIDAZOLAM 2 MG/2 ML VIAL IV ONE (12:40)
--- NOTE | 2022-05-20 12:48 | P.ANPRN ---
Procedure Note - Anesthesia - Nerve Block Performed Bilateral Erector Spinae Single Time Out Performed: Yes Date of Procedure: 05/20/22 Procedure Start Time: 12:39 Procedure Stop Time: 12:47 Location of Patient: PreOp Indication: Requested by Surgeon Specifically requested for management of pain by DrTomy: Casey Moreno Sedation Type: Sedate with meaningful contact maintained Preparation: Sterile Prep Position: Prone Needle Types: Pajunk Needle Gauge: 21 Ultrasound used to visualize needle placement: Yes Ultrasound used to observe medication spread: Yes Injectate: 0.5% Ropivacaine (see comment for volume) (15 ml + 15 ml NS + 4mg Dexamethasone per side) Blood Aspirated: No Pain Paresthesia on Injection Noted: No Resistance on Injection: Normal Image Stored and Saved: Yes Events: Uneventful and Well Tolerated
[2022-05-20] MEDS ORDERED: ROCURONIUM 10 MG/ML (5 ML VIAL) IV ONE (13:01)
[2022-05-20] MEDS ORDERED: HYDROmorphone (PF) 1 MG/ML ONE (13:01)
[2022-05-20] MEDS ORDERED: SUCCINYLCHOLINE CHLORIDE 200 MG/10 ML VIAL IV ONE (13:01)
[2022-05-20] MEDS ORDERED: ROPIVACAINE 5 MG/ML 30 ML VIAL ONE (13:01)
[2022-05-20] MEDS ORDERED: fentaNYL (PF) 50 MCG/ML 2 ML AMP ONE (13:01)
[2022-05-20] MEDS ORDERED: NEOSTIGMINE 1 MG/ML 10 ML VIAL ONE (13:01)
[2022-05-20] MEDS ORDERED: GLYCOPYRROLATE 0.2 MG/ML 2 ML VIAL ONE (13:01)
[2022-05-20] MEDS ORDERED: PROPOFOL 10 MG/ML 20 ML VIAL IV ONE (13:01)
[2022-05-20] MEDS ORDERED: LIDOCAINE 2% INJ 20 MG/ML (2 ML VIAL) ONE (13:01)
[2022-05-20] MEDS ORDERED: DEXAMETHASONE SOD PHOSPHATE 4 MG/ML 1 ML VIAL ONE (13:01)
[2022-05-20] MEDS ORDERED: MIDAZOLAM 2 MG/2 ML VIAL ONE (13:01)
[2022-05-20] MEDS ORDERED: SODIUM CHLORIDE 0.9% (PF) 10 ML VIAL ONE (13:01)
[2022-05-20] MEDS ORDERED: LACTATED RINGERS 1,000 ML IV ONE (13:32)
[2022-05-20] MEDS ORDERED: ACETAMINOPHEN TAB 325 MG TAB PO PRN (14:31)
[2022-05-20] MEDS ORDERED: HYDROmorphone 1 MG/ML 1 ML SYRINGE IVP PRN (14:31)
[2022-05-20] MEDS ORDERED: NALOXONE 0.4 MG/ML 1 ML VIAL IV PRN (14:31)
[2022-05-20] MEDS ORDERED: ONDANSETRON 4 MG/2 ML VIAL IVP PRN (14:31)
[2022-05-20] MEDS ORDERED: HYDROcodone/APAP 5-325MG 1 EACH TAB PO PRN ×2 (14:31)
--- NOTE | 2022-05-20 14:37 | P.OP ---
Date of Procedure: 05/20/22 Procedure(s) Performed: PREOPERATIVE DIAGNOSIS: Recurrent umbilical hernia POSTOPERATIVE DIAGNOSIS: Recurrent umbilical hernia, incarcerated ventral hernia PROCEDURE: Open repair recurrent umbilical hernia and incarcerated ventral hernia with mesh, partial omentectomy SURGEON: Dr. Moreno ANESTHESIA: General OPERATIVE PROCEDURE DETAILS: Patient placed on the operating table in the supine position. Abdomen was prepped and draped in usual sterile fashion. An incision was made vertically above the umbilicus dissecting around to the right side of the umbilicus. Later this was extended inferiorly somewhat. Dissection through the subcutaneous tissues took place using electrocautery. The patient was noted to have 2 hernia defects. Air was a recurrent umbilical hernia defect with a fascial opening of 2.5 cm. There was an adjacent ventral hernia with incarcerated omentum that had a fascial defect of 3 cm. A thin bridge of fascia between the 2 measured about 1-2 cm. This was divided. We now had a 6 x 4 cm fascial defect that was oval in shape and oriented horizontally. The patient's previous mesh was palpable. I was able to dissect the preperitoneal space circumferentially. Once we had adequate space an 8 x 12 cm Ventrio mesh was placed beneath the fascia as a sub-lay and sutured in place using trans-fascial 0 Ethibond sutures. Secure strap was also used circumferential. Following that the fascial defect was reapproximated horizontally using interrupted vest over pants 0 Ethibond mattress sutures. The folding edge was sutured down using interrupted 0 Ethibond sutures as well. A drain was placed anterior to the fascial closure exiting through the left lower quadrant. This was sutured to the skin using a 3-0 silk stitch. The subcutaneous tissues were closed using 3- 0 Vicryl sutures. The skin was closed using a running 4-0 Monocryl suture and skin glue. Sterile dressings were applied. LOCATION OF MESH: Sub-lay FIXATION: Trans-fascial 0 Ethibond and secure strap PREOPERATIVE DISCUSSION ON SMOKING CESSASTION: Yes PREOPERATIVE DISCUSSION ON MORBID OBESITY: Yes PREOPERATIVE DISCUSSION ON APPROPRIATE USE OF NARCOTIC USE: Yes PREOPERATIVE EDUCATION: Multi Modal, Smoking Cessation and Weight Loss with BMI over 35. DISPOSITION: Stable to recovery room
[2022-05-20] MEDS: HEPARIN SODIUM,PORCINE/PF 5,000 UNIT/0.5 ML SYRINGE SQ SCH ×2 (16:51→23:09)
[2022-05-20] MEDS: D5-0.45% NACL WITH KCL 20MEQ/L 1,000 ML IV SCH (17:19)
[2022-05-20] MEDS: KETOROLAC 15 MG/ML 1 ML VIAL IVP SCH ×2 (17:26→23:09)
[2022-05-20] MEDS: DOCUSATE 100 MG CAP PO SCH (20:39)
[2022-05-21 02:25] VITALS: RESP 18
[2022-05-21] MEDS: KETOROLAC 15 MG/ML 1 ML VIAL IVP SCH ×2 (06:33→11:41)
[2022-05-21] MEDS: D5-0.45% NACL WITH KCL 20MEQ/L 1,000 ML IV SCH (06:34)
[2022-05-21] MEDS: HEPARIN SODIUM,PORCINE/PF 5,000 UNIT/0.5 ML SYRINGE SQ SCH (08:31)
[2022-05-21] MEDS: DOCUSATE 100 MG CAP PO SCH (08:31)
[2022-05-21] MEDS ORDERED: PANTOPRAZOLE 40 MG/10 ML VIAL IVP SCH (10:30)
[2022-05-21] MEDS: LACTATED RINGERS 1,000 ML IV SCH (11:52)
[2022-05-21 12:52] VITALS: BP 145/87; PULSE 56; TEMP 97.4
--- NOTE | 2022-05-21 13:14 | P.CONS ---
History of Present Illness - Reason for Consult Consult date: 05/21/22 Medical management HTN Requesting physician: Casey Moreno - Chief Complaint Elective repair of recurrent incisional hernia - History of Present Illness This 51-year-old gentleman passed medical history of incarcerated hernia, bowel obstruction , umbilical hernia repair 2017 ,hypertension-currently being monitored outpatient as patient has lost weight and running lower, former nicotine dependence, occasional marijuana use, status post open repair recurrent umbilical hernia and incarcerated ventral hernia with mesh, partial omentectomy secondary to enlarging hernia. Tolerated procedure well. Receiving IV push Toradol every 6 hours, reporting minimal pain. Ambulating, tolerating exertion well, denies lightheadedness, dizziness or focal deficits. Systolic blood pressures running in the 120s in the 140s. Denies chest pain, palpitations or shortness of breath. Maintaining O2 sats in the high 90s on room air. Tolerating diet with no nausea vomiting or diarrhea. Passing flatus. Afebrile, normal WBC. Review of Systems Constitutional: Denied any fatigue denied any fever. Cardio vascular: denied any chest pain, palpitations Gastrointestinal denied any nausea vomiting Pulmonary: Denied any shortness of breath cough Neurologic denied any new focal deficits All inpatient medications were reviewed and appropriate changes in these medications as dictated in the interval history and assessment and plan. Past Medical History Past Medical History: Hypertension, Pneumonia Additional Past Medical History / Comment(s): BP is normal now due to weight loss History of Any Multi-Drug Resistant Organisms: None Reported Past Surgical History: No Surgical Hx Reported, Hernia Repair Additional Past Surgical History / Comment(s): varicose veins umbilical hernia Past Anesthesia/Blood Transfusion Reactions: No Reported Reaction Additional Past Anesthesia/Blood Transfusion Reaction / Comm: never had anesthesia Smoking Status: Former smoker - Past Family History Mother Family Medical History: No Reported History Medications and Allergies Home Medications Medication Instructions Recorded Confirmed Type oxyCODONE HCL [OxyIR] 5 mg PO Q6H PRN 3 Days #6 tab 05/20/22 Rx Allergies Allergy/AdvReac Type Severity Reaction Status Date / Time No Known Allergies Allergy Verified 05/20/22 11:56 Physical Exam Vitals: Vital Signs Temp Pulse Resp BP BP Pulse Ox 05/21/22 07:25 97.6 F 50 L 18 143/83 99 05/21/22 01:56 98.1 F 60 18 135/75 95 05/20/22 19:22 98.3 F 70 16 128/82 95 05/20/22 17:42 67 144/92 94 L 05/20/22 17:12 67 146/91 94 L 05/20/22 16:57 61 168/94 96 05/20/22 16:35 63 162/93 94 L 05/20/22 16:12 62 150/97 97 05/20/22 16:01 97.8 F 54 L 18 164/93 96 05/20/22 15:58 67 152/91 97 05/20/22 15:16 56 L 16 159/84 95 05/20/22 15:04 58 L 16 163/93 99 05/20/22 14:48 97.2 F L 64 16 162/81 98 05/20/22 12:50 99 16 166/98 99 05/20/22 11:18 98.1 F 73 16 168/80 97 Intake and Output 05/20/22 05/21/22 05/21/22 22:59 06:59 14:59 Output Total 30 50 Balance -30 -50 Output: Drainage 30 50 Lower Abdomen 30 50 Other: Voiding Method Toilet # Voids 1 PHYSICAL EXAM: VITAL SIGNS: [As above] GENERAL: Sitting up in bed, no acute distress HEENT: Conjunctivae normal. eyes normal. Oral mucosa moist NECK: Supple, No JVD. CARDIOVASCULAR: S1, S2 regular.No murmur RESPIRATION: Unlabored, Breath sounds diminished in the bases. No rhonchi or crackles. No bronchial breathing. ABDOMEN: Soft, status post surgery, abdominal binder present, YVONNE with sanguinous drainage. No guarding. LEGS: No edema. no swelling PSYCHIATRY: Alert and oriented X3, mood and affect normal. NERVOUS SYSTEM: Cranial N 2-12 grossly normal.No focal deficits. Strength and sensation grossly intact. Skin: Warm and dry, no rash Results CBC & Chem 7: 05/20/22 11:41 05/20/22 11:41 Assessment and Plan Assessment: Status post open repair recurrent umbilical hernia and incarcerated ventral hernia with mesh, partial omentectomy History of umbilical hernia repair 2016, incarcerated hernia with subsequent bowel obstruction 2021. Hypertension, currently being closely monitored at PCPs office,not on antihypertensives at this time. Former nicotine dependence Plan: Continue on current medication regime ,monitoring and symptomatic treatment. Diet advancement and pain management as per surgery. Aggressive pulmonary toileting with incentive spirometer ordered. Increase activity as tolerated. Close monitoring of blood pressures. Heparin subcu in place for DVT prophylaxis. PPI ordered for GI prophylaxis.Thank you kindly for the consult. The impression and plan of care has been dictated as directed. : I performed a history and examination of this patient, discussed the same with the dictator. I agree with the dictator's note ,documented as a scribe. Any additional findings or plans will be noted.
--- NOTE | 2022-05-21 13:20 | P.DS ---
Providers Date of admission: 05/21/22 09:43 Expected date of discharge: 05/21/22 Attending physician: Casey Moreno Consults: 05/20/22 14:31 Consult Physician Routine Consulting Provider: Curry Chatterjee Consult Reason/Comments: Abdomen Do you want consulting provider notified?: Yes Primary care physician: Curry Chatterjee MD Hospital Course: Discharge diagnosis 1. Recurrent umbilical hernia and incarcerated ventral hernia Hospital course This is a 51-year-old male with umbilical hernia and incarcerated ventral hernia he is status post open repair of recurrent umbilical hernia and incarcerated ventral hernia with mesh, partial omentectomy. Patient tolerated surgery well. His pain is controlled. He is tolerating diet. He is having flatus. He is afebrile. He has been up and ambulating. He is stable for discharge. Please refer to chart for any further details. Physician [employer] note has been reviewed by physician. Signing provider agrees with the documented findings, assessment, and plan of care. Patient Condition at Discharge: Stable Plan - Discharge Summary Discharge Rx Participant: No New Discharge Prescriptions: New oxyCODONE HCL [OxyIR] 5 mg PO Q6H PRN 3 Days #6 tab PRN Reason: Breakthrough Pain Discharge Medication List oxyCODONE HCL [OxyIR] 5 mg PO Q6H PRN 3 Days #6 tab 05/20/22 [Rx] Follow up Appointment(s)/Referral(s): Casey Moreno MD [Medical Doctor] - 1 Week Curry Chatterjee MD [Primary Care Provider] - 1 Week Activity/Diet/Wound Care/Special Instructions: Leave dressing in place until Friday. May shower daily starting tomorrow. After removing dressing no need to replace. AM blood pressure, prior to start of day, maintain log, take and to follow-up visit with PCP for further recommendations. Keep a log of YVONNE drain output and bring with you to your follow-up appointment Milk/strip drains 2-3 times a day Discharge Disposition: HOME SELF-CARE
== END 2022-05-21 15:36 | disposition home or self-care (01) ==
LOC: OR 10:59 → 5NMEDONC 14:44 → OR 05-21 09:43 → 5NMEDONC 05-21 09:43
PROVIDERS: ADMIT Surgery; ATTEND Surgery
DX: K42.9 Umbilical hernia without obstruction or gangrene (principal); K43.6 Other and unspecified ventral hernia with obstruction, without gangrene; I10 Essential (primary) hypertension; Z87.891 Personal history of nicotine dependence
CPT/HCPCS: 49594; 64461; 88305; 80051; 85025; G0378 ×2; C1781; J2250; J0330; J1100; J2710; J0690; J2405; J3010; J1170; J2795; J1885 ×2; J2704; C9113; J1644 ×2; J2001